=== PATIENT | male | born 1970 | race Caucasian/White ===

== ENCOUNTER 2023-02-23 23:13 | Emergency (ER) | payer BC ==
[2023-02-24] MEDS ORDERED: HYDROmorphone 1 MG/ML 1 ML SYRINGE ONE (01:00)
[2023-02-24] MEDS ORDERED: PROPOFOL 10 MG/ML 20 ML VIAL IV ONE (01:00)
[2023-02-24] MEDS ORDERED: HYDROmorphone 0.5 MG/0.5 ML SYRINGE ONE (01:00)
--- NOTE | 2023-02-24 12:10 | XR ---
EXAM: XR Right Shoulder Complete, 2 or More Views CLINICAL HISTORY: FALL, RT SHOULDER DEFORMITY/PAIN TECHNIQUE: Two or more views of the right shoulder. COMPARISON: No relevant prior studies available. FINDINGS: Anterior dislocation of the humeral head relative to the glenoid. Probable impaction of the humeral head in the inferior aspect of the glenoid. No definite fracture identified. Acromioclavicular joint is intact. Ribs are unremarkable. IMPRESSION: Anterior dislocation humeral head relative the glenoid with suspected impaction the inferior aspect of the glenoid.
--- NOTE | 2023-02-24 12:45 | XR ---
EXAM: XR Right Shoulder, 1 View CLINICAL HISTORY: post reduction TECHNIQUE: One view of the right shoulder. COMPARISON: 02/24/2023 FINDINGS: Interval reduction previously demonstrated anterior dislocation of the humeral head. Glenohumeral joint is in anatomic position. No acute fracture. Degenerative changes of the acromioclavicular joint. Bone mineralization is within normal limits. Otherwise no change. IMPRESSION: Reduction of previous dislocation now in anatomic position.
--- NOTE | 2023-02-24 15:37 | XR ---
EXAM: XR Right Elbow, 2 Views CLINICAL HISTORY: FALL, RT ELBOW PAIN TECHNIQUE: Frontal and lateral views of the right elbow. COMPARISON: No relevant prior studies available. FINDINGS: Bones/joints: Unremarkable. No acute fracture. No dislocation. Soft tissues: Unremarkable. IMPRESSION: No acute post-traumatic abnormality.
== END 2023-02-24 04:04 | disposition home or self-care (01) ==
LOC: EC 23:13
DX: S43.014A Anterior dislocation of right humerus, initial encounter (principal); F10.129 Alcohol abuse with intoxication, unspecified; W01.0XXA Fall on same level from slipping, tripping and stumbling without subsequent striking against object, initial encounter
CPT/HCPCS: 23650; 99283